=== PATIENT | female | born 1975 | race Caucasian/White ===

== ENCOUNTER 2018-08-30 09:15 | Emergency (ER) | payer OTHER ==
[~2018-08-30] VITALS: Ht 160 cm; Wt 59.1 kg
[2018-08-30 09:16] VITALS: BP 121/65
[2018-08-30] MEDS ORDERED: MULTCAP PO (09:27)
[2018-08-30] MEDS ORDERED: diphenhydrAMINE INJ 50MG/ML VIAL (J1200) IV STA (09:37)
[2018-08-30] MEDS ORDERED: NS 1,000 ML IV ONE (09:45)
[2018-08-30] MEDS ORDERED: KETOROLAC 30 MG/ML VIAL (J1885) IV ONE (09:45)
[2018-08-30] MEDS ORDERED: METOCLOPRAMIDE INJ 10MG/2ML VIAL (J2765) IV ONE (09:45)
[2018-08-30 10:14] LABS: HEMATOCRIT 27.8 % (36.0-47.0); HEMOGLOBIN 10.1 g/dl (12.0-15.5); LYMPH # 0.5 10^3/uL (1.5-4.5); LYMPH % 20.9 % (24.0-44.0); MEAN CORPUSCULAR HEMOGLOBIN 28.6 pg (27.0-33.0); MEAN CORPUSCULAR HGB CONC 36.3 g/dl (32.0-36.5); MEAN CORPUSCULAR VOLUME 78.8 fl (80.0-96.0); MONO # 0.2 10^3/uL (0.0-0.8); MONO % 9.1 % (0.0-5.0); NEUTROPHILS # 1.6 10^3/uL (1.8-7.7); NEUTROPHILS % 69.6 % (36.0-66.0); PLATELET COUNT, AUTOMATED 128 10^3/uL (150-450); RED BLOOD COUNT 3.53 10^6/uL (4.00-5.40); WHITE BLOOD COUNT 2.3 10^3/uL (4.0-10.0)
[2018-08-30 10:37] LABS: ALBUMIN 3.9 GM/DL (3.2-5.2); ALT/SGPT 19 U/L (12-78); BILIRUBIN,DIRECT 0.4 MG/DL (0.0-0.2); BILIRUBIN,TOTAL 1.7 MG/DL (0.2-1.0); BLOOD UREA NITROGEN 8 MG/DL (7-18); CALCIUM LEVEL 8.1 MG/DL (8.5-10.1); CARBON DIOXIDE LEVEL 23 MEQ/L (21-32); CHLORIDE LEVEL 103 MEQ/L (98-107); CREATININE FOR GFR 0.66 MG/DL (0.55-1.30); GLOMERULAR FILTRATION RATE > 60.0 (>58); GLUCOSE, FASTING 98 MG/DL (70-100); POTASSIUM SERUM 3.6 MEQ/L (3.5-5.1); SODIUM LEVEL 135 MEQ/L (136-145); TOTAL PROTEIN 7.1 GM/DL (6.4-8.2)
[2018-08-30 10:45] LABS: MONO REFLEX EBV COMP NEGATIVE (NEGATIVE)
[2018-08-30 11:17] LABS: INFLUENZA A AMPLIFICATION POSITIVE (NEGATIVE); INFLUENZA B AMPLIFICATION NEGATIVE (NEGATIVE)
[2018-08-30] MEDS ORDERED: OSEL75CA PO (12:06)
[2018-08-30] MEDS ORDERED: REGL10TA6 PO (12:07)
[2018-09-01 00:07] LABS: EBV AB TO NUCLEAR ANTIGEN >600.0 U/mL (0.0-17.9); EBV VIRAL CAPSID AG IgM <36.0 U/mL (0.0-35.9)
== END 2018-08-30 12:49 | disposition home or self-care (01) ==
LOC: M ED 09:15
DX: J09.X3 Influenza due to identified novel influenza A virus with gastrointestinal manifestations (principal); R10.9 Unspecified abdominal pain; R51 Headache; R11.0 Nausea; D58.0 Hereditary spherocytosis; R16.1 Splenomegaly, not elsewhere classified; G43.909 Migraine, unspecified, not intractable, without status migrainosus
CPT/HCPCS: 80048; 80076; 83605; 85025; 86308; 86663; 86664; 86665; 87040; 87502; 96361; 96374; 96375; 99284; J1200; J1885; J2765

== ENCOUNTER → 2019-08-04 | Outpatient (CLI) | payer OTHER ==
[~2019-08-04] MED LIST: MULTCAP PO; OSEL75CA PO; REGL10TA6 PO
--- NOTE | 2019-08-04 09:38 | REPMRS ---
Patient History The patient states she had a clinical breast exam in July 2019. No known family history of cancer. Digital Mammo Diagnostic Bilateral: August 04, 2019 - Exam #: [id number] Bilateral CC and MLO view(s) were taken. Technologist: Aislinn North, Technologist No prior studies available for comparison. FINDINGS: There are scattered fibroglandular densities. There is no evidence of dominant mass, architectural distortion, or grouped microcalcification typical of malignancy. The patient reports that the palpable lump discovered 2-3 months ago is no longer present. Assessment: BI-RADS/ACR category 1 mammogram. Negative Mammogram. Recommendation Routine screening mammogram of both breasts in 1 year (for women over age 40). This patient's Lifetime Breast Cancer RIsk is estimated at 8.5 %. This mammogram was interpreted with the aid of an FDA-approved computer-aided dectection system. Electronically Signed By: Ronaldo Dee MD 08/04/19 0937
== END ==
LOC: M RAD 08:38
PROVIDERS: ATTEND Advanced Practice Midwife
DX: N60.02 Solitary cyst of left breast (principal)

== ENCOUNTER → 2019-08-08 | Outpatient (CLI) | payer OTHER ==
[2019-08-08 18:26] LABS: BASO % 0.2 % (0.0-1.0); EOS % 0.5 % (0.0-3.0); HEMATOCRIT 30.2 % (36.0-47.0); HEMOGLOBIN 10.7 g/dl (12.0-15.5); LYMPH # 0.8 10^3/uL (1.5-5.0); LYMPH % 18.4 % (24.0-44.0); MEAN CORPUSCULAR HEMOGLOBIN 30.7 pg (27.0-33.0); MEAN CORPUSCULAR HGB CONC 35.4 g/dl (32.0-36.5); MEAN CORPUSCULAR VOLUME 86.5 fl (80.0-96.0); MONO # 0.3 10^3/uL (0.0-0.8); MONO % 7.2 % (0.0-5.0); NEUTROPHILS # 3.1 10^3/uL (1.5-8.5); NEUTROPHILS % 73.5 % (36.0-66.0); PLATELET COUNT, AUTOMATED 150 10^3/uL (150-450); RED BLOOD COUNT 3.49 10^6/uL (4.00-5.40); WHITE BLOOD COUNT 4.2 10^3/uL (4.0-10.0)
[2019-08-08 18:34] LABS: FREE T4 1.03 NG/DL (0.76-1.46); THYROID STIMULATING HORMONE 1.21 uIU/ML (0.358-3.740)
[2019-08-08 18:38] LABS: FOLLICLE STIMULATING HORMONE 14.9 mIU/mL; LUTEINIZING HORMONE 7.1 mIU/mL
== END ==
LOC: M PLALAB 14:53
PROVIDERS: ATTEND Advanced Practice Midwife
DX: N92.6 Irregular menstruation, unspecified (principal)

== ENCOUNTER → 2019-08-17 | Outpatient (CLI) | payer OTHER ==
--- NOTE | 2019-08-17 20:57 | REP ---
Clinical: Irregular menstrual cycles. Technique: Transabdominal pelvic ultrasound followed by transvaginal examination for better evaluation of the endometrium and adnexa with color Doppler evaluation of the ovaries. Findings: Bladder is normal and measures 7.5 x 3.8 x 5.9 cm. Anteverted uterus measures 10.0 x 5.3 x 6.4 cm. Endometrial complex measures 11 mm thickness. No discrete uterine or endometrial abnormalities appreciated. Left ovary measures 3.6 x 2.0 x 3.4 cm and includes physiologic cysts/follicles measuring 1.2 cm and 1.6 cm diameter each. Right ovary measures 3.3 x 3.0 x 3.3 cm and includes 2.7 cm cyst. No pelvic fluid or adnexal mass lesion. Impression: 1. Mildly enlarged uterus without discrete abnormality. 2. 2.7 cm right ovarian cyst and presumed left ovarian follicles. Consider follow-up examination in 4-6 weeks to evaluate for resolution. Electronically Signed by Saravanan Medeiros MD 08/17/2019 08:48 P
== END ==
LOC: M LRY 08:16
PROVIDERS: ATTEND Advanced Practice Midwife
DX: N85.2 Hypertrophy of uterus (principal); N83.291 Other ovarian cyst, right side; N92.6 Irregular menstruation, unspecified

== ENCOUNTER → 2019-08-24 | Outpatient (REF) | payer OTHER | LOC: M SFHCWAGY 09:37 | PROVIDERS: ATTEND Advanced Practice Midwife | DX: Z12.4 Encounter for screening for malignant neoplasm of cervix (principal); R87.610 Atypical squamous cells of undetermined significance on cytologic smear of cervix (ASC-US) | CPT/HCPCS: 87624; G0123 ==